=== PATIENT | male | born 1955 | race Caucasian/White ===

== ENCOUNTER 2016-12-04 16:22 | Emergency (ER) | payer MEDICAID ==
[~2016-12-04] VITALS: Ht 193 cm; Wt 85.0 kg
[2016-12-04 16:35] VITALS: BP 131/84; PULSE 79; RESP 16; TEMP 98.1; O2SAT 98
[2016-12-04 17:39] VITALS: BP 145/92; PULSE 72; RESP 22; TEMP 98.1; O2SAT 97
[2016-12-04] MEDS ORDERED: DEPA500T PO (17:49)
[2016-12-04] MEDS ORDERED: LIPI10TA PO (17:50)
[2016-12-04] MEDS ORDERED: SULF1TAB23 PO (17:53)
[2016-12-04] MEDS ORDERED: LISI40TA PO (17:53)
[2016-12-04] MEDS ORDERED: HYDR-3580 PO (17:56)
[2016-12-04] MEDS ORDERED: ALBUAER3 INH (17:56)
[2016-12-04] MEDS ORDERED: LORA-361 PO (17:56)
[2016-12-04] MEDS ORDERED: VENTAER INH (17:57)
[2016-12-04 18:04] LABS: AUTOMATED NEUTROPHIL # 3.7 TH/MM3 (1.8-7.7); BASOPHIL # 0.1 TH/MM3 (0-0.2); BASOPHIL % 0.7 % (0.0-2.0); EOSINOPHIL # 0.5 TH/MM3 (0-0.4); HEMATOCRIT 37.3 % (39.0-51.0); HEMO FLAGS DIFF FINAL; LYMPH % 36.9 % (9.0-44.0); LYMPHOCYTE # 2.8 TH/MM3 (1.0-4.8); MEAN CORPUSCULAR HEMOGLOBIN 29.7 PG (27.0-34.0); MEAN CORPUSCULAR HGB CONC 33.3 % (32.0-36.0); MONO % 7.6 % (0.0-8.0); NEUT % 47.8 % (16.0-70.0); PLATELET COUNT 235 TH/MM3 (150-450); RED CELL DISTRIBUTION WIDTH 13.5 % (11.6-17.2); WHITE BLOOD COUNT 7.7 TH/MM3 (4.0-11.0)
[2016-12-04 18:16] LABS: BACTERIA, URINE RARE /hpf; BLOOD, URINE LARGE (NEG); GLUCOSE,URINE NEG (NEG); KETONE, URINE NEG (NEG); NITRITE,URINE NEG (NEG); PH, URINE 7.5 (5.0-8.5); URINE COLOR YELLOW (YELLW/STRAW)
[2016-12-04 18:18] LABS: COMMENT (UR) CATH-CULTURE IND; CULTURE IF INDICATED CATH CULTURE IND
--- NOTE | 2016-12-04 18:53 | PD ---
HPI Chief Complaint: Complaint Time Seen by Provider: 17:26 Travel History International Travel<30 days: No Contact w/Intl Traveler<30days: No Traveled to known affect area: No History of Present Illness HPI This patient comes to the emergency room for evaluation of blood in his urine. He's been having this problem on and off for months. He has history of pancreatic cancer which she reports has spread to the bladder. He says that he follows with urologist Dr. Rose and in the future some sort of procedure is planned that the patient is not sure of the details. He has no fever. No presyncopal symptoms. Severity is mild to moderate. No alleviating factors. Duration is months. PFSH Past Medical History Bipolar Disorder: Yes Anxiety: Yes Cancer: Yes Chemotherapy: Yes COPD: Yes Diabetes: Yes Patient Takes Glucophage: No Schizophrenia: Yes Tetanus Vaccination: Never Vaccinated Influenza Vaccination: Yes Past Surgical History Genitourinary Surgery: Yes (stent placement) Social History Alcohol Use: No Tobacco Use: Yes Substance Use: No Allergies-Medications (Allergen,Severity, Reaction): Coded Allergies: Tetanus Toxoid (Verified Allergy, Severe, Anemia, 12/04/16) Reported Meds & Prescriptions Reported Meds & Active Scripts Active Reported Ventolin Hfa 18 GM Inh (Albuterol Sulfate) 90 Mcg/Act Aer 2 Puff INH Q6H PRN Proair Hfa 8.5 GM Inh (Albuterol Sulfate) 90 Mcg/Act Aer 3 Puff INH Q6H PRN 108 mcg/actuation Hydrocodone-Acetaminophen 7.5-325 mg Tab 1 Tab PO Q6H PRN Claritin (Loratadine) 10 Mg Tab 10 Mg PO DAILY Lisinopril 40 Mg Tab 40 Mg PO DAILY Sulfamethoxazole-Trimethoprim 800-160 Mg Tab 1 Tab PO BID Lipitor (Atorvastatin Calcium) 10 Mg Tab 20 Mg PO HS Depakote DR (Divalproex Sodium) 500 Mg Tabdr 500 Mg PO QID Review of Systems General / Constitutional: No: Fever Eyes: No: Visual changes HENT: No: Headaches Cardiovascular: No: Chest Pain or Discomfort Respiratory: No: Shortness of Breath Gastrointestinal: No: Abdominal Pain Genitourinary: Positive: Hematuria, No: Dysuria Musculoskeletal: Positive: Pain Skin: No Rash Neurologic: No: Weakness Psychiatric: No: Depression Endocrine: No: Polydipsia Hematologic/Lymphatic: No: Easy Bruising Physical Exam Narrative GENERAL: Well-nourished, well-developed patient in no apparent distress. SKIN: Warm and dry. HEAD: Atraumatic. Normocephalic. EYES: Pupils equal and round. No scleral icterus. No injection or drainage. ENT: No nasal bleeding or discharge. Mucous membranes pink and moist. NECK: Trachea midline. No JVD. CARDIOVASCULAR: Regular rate and rhythm. No murmur appreciated. RESPIRATORY: No accessory muscle use. Clear to auscultation. Breath sounds equal bilaterally. GASTROINTESTINAL: Abdomen soft, non-tender, nondistended. Hepatic and splenic margins not palpable. MUSCULOSKELETAL: No obvious deformities. No clubbing. No cyanosis. No edema. NEUROLOGICAL: Awake and alert. No obvious cranial nerve deficits. Motor grossly within normal limits. Normal speech. PSYCHIATRIC: Appropriate mood and affect; insight and judgment adequate. : Has indwelling catheter attached to a leg bag. His urine is dark but not grossly bloody Data Data Last Documented VS Vital Signs Date Time Temp Pulse Resp B/P Pulse Ox O2 Delivery O2 Flow Rate FiO2 12/04/16 17:39 98.1 72 22 145/92 97 Room Air Orders Iv Access Insert/Monitor (12/04/16 17:34) Complete Blood Count With Diff (12/04/16 17:34) Urinalysis - C+S If Indicated (12/04/16 17:34) Urine Culture (12/04/16 17:45) Labs Laboratory Tests Test 12/04/16 17:45 White Blood Count 7.7 TH/MM3 Red Blood Count 4.20 MIL/MM3 Hemoglobin 12.4 GM/DL Hematocrit 37.3 % Mean Corpuscular Volume 89.0 FL Mean Corpuscular Hemoglobin 29.7 PG Mean Corpuscular Hemoglobin 33.3 % Concent Red Cell Distribution Width 13.5 % Platelet Count 235 TH/MM3 Mean Platelet Volume 7.6 FL Neutrophils (%) (Auto) 47.8 % Lymphocytes (%) (Auto) 36.9 % Monocytes (%) (Auto) 7.6 % Eosinophils (%) (Auto) 7.0 % Basophils (%) (Auto) 0.7 % Neutrophils # (Auto) 3.7 TH/MM3 Lymphocytes # (Auto) 2.8 TH/MM3 Monocytes # (Auto) 0.6 TH/MM3 Eosinophils # (Auto) 0.5 TH/MM3 Basophils # (Auto) 0.1 TH/MM3 CBC Comment DIFF FINAL Differential Comment Urine Color YELLOW Urine Turbidity CLEAR Urine pH 7.5 Urine Specific Grant 1.013 Urine Protein TRACE mg/dL Urine Glucose (UA) NEG mg/dL Urine Ketones NEG mg/dL Urine Occult Blood LARGE Urine Nitrite NEG Urine Bilirubin NEG Urine Urobilinogen LESS THAN 2.0 MG/DL Urine Leukocyte Esterase TRACE Urine RBC /hpf Urine WBC 14 /hpf Urine Bacteria RARE /hpf Microscopic Urinalysis Comment CATH-CULTURE IND [facility] Medical Decision Making Medical Screen Exam Complete: Yes Emergency Medical Condition: Yes Medical Record Reviewed: Yes Differential Diagnosis Hematuria, metastatic cancer, bladder invasion by tumor Narrative Course I have reviewed the patient's electronic medical record. Patient is never been to this hospital before Patient's vital signs are normal His exam is benign Urinalysis shows innumerable red cells but nothing suggesting infection Patient has an intermittent flare of chronic hematuria He should call his urologist in the morning for follow-up for this can be done as an outpatient. He is medically stable CBC shows hemoglobin 12-1/2 Diagnosis Primary Impression: Hematuria Additional Impression: Pancreatic cancer Qualified Code: C25.9 - Malignant neoplasm of pancreas, unspecified location of malignancy Additional Instructions: The patient was advised to follow up with their urologist Med/Other Pt SpecificInfo: Other Disposition: 01 DISCHARGE HOME Condition: Stable Rambo Harry MD Dec 04, 2016 18:52
== END 2016-12-04 23:00 | disposition home or self-care (01) ==
LOC: NEPC 16:22 → NEDAMB 23:00
DX: R31.9 Hematuria, unspecified (principal); C25.9 Malignant neoplasm of pancreas, unspecified; F41.9 Anxiety disorder, unspecified; F31.9 Bipolar disorder, unspecified; J44.9 Chronic obstructive pulmonary disease, unspecified; E11.9 Type 2 diabetes mellitus without complications; F20.9 Schizophrenia, unspecified; Z72.0 Tobacco use; Z79.4 Long term (current) use of insulin; Z79.899 Other long term (current) drug therapy
CPT/HCPCS: 81001; 85025; 87086; 99283